=== PATIENT | female | born 1980 | race Caucasian/White ===

== ENCOUNTER 2018-01-10 11:00 | Emergency (ER) | payer MEDICAID ==
[~2018-01-10] VITALS: Ht 165.1 cm; Wt 87.5 kg
[2018-01-10 11:08] VITALS: Ht 165.1 cm; Wt 87.5 kg
[2018-01-10 12:42] VITALS: BP 128/91
== END 2018-01-10 12:43 | disposition home or self-care (01) ==
LOC: ED 11:00
DX: S92.414A Nondisplaced fracture of proximal phalanx of right great toe, initial encounter for closed fracture (principal); S80.211A Abrasion, right knee, initial encounter; S50.312A Abrasion of left elbow, initial encounter; W18.39XA Other fall on same level, initial encounter; Y93.89 Activity, other specified; Y92.89 Other specified places as the place of occurrence of the external cause; Y99.8 Other external cause status

== ENCOUNTER 2018-02-15 19:35 | Emergency (ER) | payer MEDICAID ==
[~2018-02-15] VITALS: Ht 165.1 cm; Wt 89.4 kg
[2018-02-15 20:41] VITALS: BP 124/72
== END 2018-02-15 20:41 | disposition home or self-care (01) ==
LOC: ED 19:35
DX: L03.012 Cellulitis of left finger (principal); M32.9 Systemic lupus erythematosus, unspecified; M79.7 Fibromyalgia

== ENCOUNTER 2018-08-06 14:46 | Emergency (ER) | payer BC ==
[~2018-08-06] VITALS: Ht 165.1 cm; Wt 87.5 kg
[2018-08-06 14:59] VITALS: Ht 165.1 cm; Wt 87.5 kg
[2018-08-06 15:54] LABS: BASOPHIL % 0.5 % (0-2); PLATELET COUNT 299 x10^3mcL (130-400); RED CELL DISTRIBUTION WIDTH 12.7 % (11.5-14.5)
[2018-08-06 16:09] LABS: ALKALINE PHOSPHATASE 48 U/L (46-116); ALT/SGPT 31 U/L (14-59); AST/SGOT 14 U/L (15-37); BILIRUBIN TOTAL 0.44 mg/dL (0.20-1.00); CARBON DIOXIDE 23.2 mmol/L (21-32); CHLORIDE SERUM 105 mmol/L (98-107); POTASSIUM SERUM 3.8 mmol/L (3.5-5.1); SODIUM SERUM 139 mmol/L (136-145)
[2018-08-06 16:39] LABS: ALBUMIN 4.1 g/dL (3.4-5.0); CALCIUM 9.2 mg/dL (8.5-10.1); GLUCOSE SERUM 98 mg/dL (74-106); LIPASE 142 IU/L (73-393); TOTAL PROTEIN, SERUM 7.6 g/dL (6.4-8.2)
[2018-08-06 16:56] LABS: CREATININE SERUM 0.7 mg/dL (0.6-1.0); GFR1 > 60 mL/min
[2018-08-06 17:53] VITALS: BP 114/83
== END 2018-08-06 17:53 | disposition home or self-care (01) ==
LOC: ED 14:46
PROVIDERS: Emergency Medicine
DX: N73.9 Female pelvic inflammatory disease, unspecified (principal)
CPT/HCPCS: 36415; J0696; J1885

== ENCOUNTER 2019-02-21 08:59 | Emergency (ER) | payer BC ==
[~2019-02-21] VITALS: Ht 165.1 cm; Wt 87.5 kg
[2019-02-21 09:01] VITALS: Ht 165.1 cm; Wt 87.5 kg
[2019-02-21 10:47] VITALS: BP 119/74
== END 2019-02-21 10:47 | disposition home or self-care (01) ==
LOC: ED 08:59
DX: T50.995A Adverse effect of other drugs, medicaments and biological substances, initial encounter (principal); R10.9 Unspecified abdominal pain; R11.0 Nausea; Y92.89 Other specified places as the place of occurrence of the external cause

== ENCOUNTER 2019-05-03 10:38 | Emergency (ER) | payer BC ==
[~2019-05-03] VITALS: Ht 165.1 cm; Wt 83.9 kg
[2019-05-03 10:46] VITALS: Ht 165.1 cm; Wt 83.9 kg
[2019-05-03 11:50] LABS: BASOPHIL % 0.5 % (0-2); PLATELET COUNT 332 x10^3mcL (130-400); RED CELL DISTRIBUTION WIDTH 13.2 % (11.5-14.5)
[2019-05-03 11:57] LABS: CALCIUM 8.5 mg/dL (8.5-10.1); CARBON DIOXIDE 25.2 mmol/L (21-32); CHLORIDE SERUM 106 mmol/L (98-107); CREATININE SERUM 0.8 mg/dL (0.6-1.0); GFR1 > 60 mL/min; GLUCOSE SERUM 115 mg/dL (74-106); POTASSIUM SERUM 3.7 mmol/L (3.5-5.1); SODIUM SERUM 141 mmol/L (136-145)
[2019-05-03 12:11] LABS: ALBUMIN 4.4 g/dL (3.4-5.0); ALKALINE PHOSPHATASE 54 U/L (46-116); ALT/SGPT 30 U/L (14-59); AST/SGOT 18 U/L (15-37); BILIRUBIN TOTAL 0.3 mg/dL (0.20-1.00); CHOLESTEROL 185 mg/dL (<200); LIPASE 131 IU/L (73-393); MAGNESIUM 1.8 mg/dL (1.8-2.4); T4(THYROXINE) 5.6 ug/dL (4.7-13.3)
[2019-05-03 12:12] LABS: HDL CHOLESTEROL 30 mg/dL (40-60); TOTAL PROTEIN, SERUM 8.4 g/dL (6.4-8.2)
[2019-05-03 12:40] LABS: AMPHETAMINE QUAL UR NONE DETECTED (See below)
[2019-05-03 14:18] VITALS: BP 133/86
== END 2019-05-03 14:18 | disposition home or self-care (01) ==
LOC: ED 10:38
PROVIDERS: Emergency Medicine
DX: S00.03XA Contusion of scalp, initial encounter (principal); S60.221A Contusion of right hand, initial encounter; S80.02XA Contusion of left knee, initial encounter; L93.0 Discoid lupus erythematosus; M79.7 Fibromyalgia; E66.9 Obesity, unspecified; F10.129 Alcohol abuse with intoxication, unspecified; Z68.30 Body mass index [BMI] 30.0-30.9, adult; Z98.890 Other specified postprocedural states; W18.39XA Other fall on same level, initial encounter; Y93.89 Activity, other specified; Y92.511 Restaurant or cafe as the place of occurrence of the external cause; Y99.8 Other external cause status; Y90.0 Blood alcohol level of less than 20 mg/100 ml
CPT/HCPCS: 82962; 83880; G0480; J8597; Q0092; Q0162

== ENCOUNTER 2019-05-21 09:50 | Emergency (ER) | payer BC ==
[~2019-05-21] VITALS: Ht 165.1 cm; Wt 85.7 kg
[2019-05-21 10:09] VITALS: Ht 165.1 cm; Wt 85.7 kg
[2019-05-21 12:23] VITALS: BP 107/55
== END 2019-05-21 12:23 | disposition home or self-care (01) ==
LOC: ED 09:50
DX: S00.03XA Contusion of scalp, initial encounter (principal); F07.81 Postconcussional syndrome; Z98.890 Other specified postprocedural states; X58.XXXA Exposure to other specified factors, initial encounter; Y93.89 Activity, other specified; Y92.89 Other specified places as the place of occurrence of the external cause; Y99.8 Other external cause status

== ENCOUNTER 2019-05-23 19:11 | Emergency (ER) | payer BC ==
[~2019-05-23] VITALS: Ht 165.1 cm; Wt 85.3 kg
[2019-05-23 19:34] VITALS: Ht 165.1 cm; Wt 85.3 kg
[2019-05-23 21:08] VITALS: BP 107/69
== END 2019-05-23 21:08 | disposition home or self-care (01) ==
LOC: ED 19:11
DX: S00.03XA Contusion of scalp, initial encounter (principal); Z98.890 Other specified postprocedural states; X58.XXXA Exposure to other specified factors, initial encounter; Y93.89 Activity, other specified; Y92.89 Other specified places as the place of occurrence of the external cause; Y99.8 Other external cause status
CPT/HCPCS: J2001

== ENCOUNTER 2020-04-09 16:04 | Emergency (ER) | payer BC ==
[~2020-04-09] VITALS: Ht 165.1 cm; Wt 77.6 kg
[2020-04-09 18:00] LABS: BASOPHIL % 0.4 % (0.2-1.3); PLATELET COUNT 312 x10^3mcL (179-408); RED CELL DISTRIBUTION WIDTH 12.8 % (12.3-17.7)
[2020-04-09 18:11] LABS: CALCIUM 9.3 mg/dL (8.5-10.1); CARBON DIOXIDE 29.9 mmol/L (21-32); CHLORIDE SERUM 101 mmol/L (98-107); CREATININE SERUM 0.8 mg/dL (0.6-1.0); GFR1 > 60 mL/min; GLUCOSE SERUM 129 mg/dL (74-106); POTASSIUM SERUM 3.5 mmol/L (3.5-5.1); SODIUM SERUM 139 mmol/L (136-145)
[2020-04-09 18:15] LABS: ALBUMIN 4.3 g/dL (3.4-5.0); ALKALINE PHOSPHATASE 56 U/L (46-116); ALT/SGPT 44 U/L (14-59); AST/SGOT 20 U/L (15-37); BILIRUBIN TOTAL 0.4 mg/dL (0.20-1.00); LIPASE 138 IU/L (73-393)
[2020-04-09 20:45] VITALS: BP 122/64
[2020-04-09 21:07] LABS: UA SPECIFIC GRAVITY 1.025 (1.005-1.035); microscopic required? YES; urine erythrocyte NEGATIVE (NEGATIVE)
== END 2020-04-09 20:45 | disposition home or self-care (01) ==
LOC: ED 16:04
PROVIDERS: Emergency Medicine
DX: K59.00 Constipation, unspecified (principal); L93.0 Discoid lupus erythematosus; M79.7 Fibromyalgia; F11.20 Opioid dependence, uncomplicated; Z98.890 Other specified postprocedural states

== ENCOUNTER 2020-04-27 12:16 | Emergency (ER) | payer BC ==
[~2020-04-27] VITALS: Ht 165.1 cm; Wt 87.5 kg
[2020-04-27 12:23] VITALS: Ht 165.1 cm; Wt 87.5 kg
[2020-04-27 13:01] LABS: RED CELL DISTRIBUTION WIDTH 12.8 % (12.3-17.7)
[2020-04-27 13:03] LABS: BASOPHIL % 0.3 % (0.2-1.3); PLATELET COUNT 241 x10^3mcL (179-408)
[2020-04-27 13:04] LABS: CALCIUM 9.2 mg/dL (8.5-10.1); CARBON DIOXIDE 30.9 mmol/L (21-32); CHLORIDE SERUM 101 mmol/L (98-107); CREATININE SERUM 0.9 mg/dL (0.6-1.0); GFR1 > 60 mL/min; GLUCOSE SERUM 161 mg/dL (74-106); POTASSIUM SERUM 3.5 mmol/L (3.5-5.1); SODIUM SERUM 137 mmol/L (136-145)
[2020-04-27 13:08] LABS: ALBUMIN 3.8 g/dL (3.4-5.0); ALKALINE PHOSPHATASE 49 U/L (46-116); ALT/SGPT 30 U/L (14-59); AST/SGOT 12 U/L (15-37); BILIRUBIN TOTAL 0.6 mg/dL (0.20-1.00); TOTAL PROTEIN, SERUM 7.2 g/dL (6.4-8.2)
[2020-04-27 14:18] VITALS: BP 124/68
== END 2020-04-27 14:18 | disposition home or self-care (01) ==
LOC: ED 12:16
PROVIDERS: Emergency Medicine
DX: S09.8XXA Other specified injuries of head, initial encounter (principal); M79.7 Fibromyalgia; M54.2 Cervicalgia; M79.671 Pain in right foot; Z98.890 Other specified postprocedural states; X58.XXXA Exposure to other specified factors, initial encounter; Y93.89 Activity, other specified; Y92.89 Other specified places as the place of occurrence of the external cause; Y99.8 Other external cause status